=== PATIENT | female | born 1955 | race Caucasian/White ===

== ENCOUNTER → 2017-08-03 | Outpatient (CLI) | payer OTHER ==
--- NOTE | 2017-08-03 17:51 | WOMENS IMAGING REPORT ---
EXAM DESCRIPTION: BILAT SCREENING MAMMO W/CAD COMPLETED DATE/TIME: 08/03/2017 8:33 am REASON FOR STUDY: ROUTINE SCREENING; Z12.31 Z12.31 ENCNTR SCREEN MAMMOGRAM FOR MALIGNANT NEOPLASM O F MARIVEL COMPARISON: Multiple since 2010 TECHNIQUE: Standard craniocaudal and mediolateral oblique views of each breast recorded using [employer] l acquisition. LIMITATIONS: None. FINDINGS: Findings present which are benign by mammographic criteria. No suspicious masses, calcifi cations or architectural distortion. Pertinent benign findings: Stable benign breast nodules bilaterally. Read with the assistance of CAD. .[facility] - R2 Cenova Version 1.3 .[facility] Imaging - R2 Cenova Version 1.3 .[facility] - R2 Cenova Version 2.4 .[facility] - R2 Cenova Version 2.4 .[facility] - R2 Pre Sales Systems Engineer Version 9.2 Benign mammographic findings may include one or more of the following: Smooth masses, popcorn/rim/co arse calcifications, asymmetries, post-procedure changes, and lesions with long-standing stability. IMPRESSION: BENIGN MAMMOGRAPHIC FINDINGS. BIRADS 2 BREAST DENSITY: b. There are scattered areas of fibroglandular density. BIRAD: 2 BENIGN FINDING(S) RECOMMENDATION: ROUTINE SCREENING Please consider bilateral screening tomosynthesis in July 2018 COMMENT: The patient has been notified of the results by letter per MQSA requirements. Additional no tification policies are in place for contacting patient with suspicious or incomplete findings. Quality ID #[id number]: The [employer] recommends an annual screening mammogram for women aged 40 years or over. This facility utilizes a reminder system to ensure that all patients receive reminder letters, and/or direct phone calls for appointments. This includes reminders for routine scr eening mammograms, diagnostic mammograms, or other Breast Imaging Interventions when appropriate. Th is patient will be placed in the appropriate reminder system. The [employer] (ACR) has developed recommendations for screening MRI of the breast s in certain patient populations, to be used in conjunction with mammography. Breast MRI surveillanc e may be appropriate for women with more than 20% lifetime risk of developing breast cancer as deter mined by genetic testing, significant family history of the disease, or history of mantle radiation f or Hodgkins Disease. ACR Practice Guidelines 2008. TECHNICAL DOCUMENTATION: FINDING NUMBER: (1) ASSESSMENT: (1) JOB ID: [id number] [employer]- All Rights Reserved
== END ==
LOC: WI 08:13
PROVIDERS: ATTEND Physician Assistant
DX: Z12.31 Encounter for screening mammogram for malignant neoplasm of breast (principal)
CPT/HCPCS: 77067; G0202

== ENCOUNTER → 2018-08-08 | Outpatient (CLI) | payer OTHER ==
--- NOTE | 2018-08-08 10:35 | WOMENS IMAGING REPORT ---
EXAM DESCRIPTION: BILAT SCREENING MAMMO W/CAD COMPLETED DATE/TIME: 08/08/2018 8:34 am REASON FOR STUDY: BILATERAL SCREENING MAMMO /Z12.31 Z12.31 ENCNTR SCREEN MAMMOGRAM FOR MALIGNANT NE OPLASM OF MARIVEL COMPARISON: [id number] TECHNIQUE: Standard craniocaudal and mediolateral oblique views of each breast recorded using [employer] acquisition. LIMITATIONS: None. FINDINGS: No masses, calcifications or architectural distortion. No areas of suspicion. Read with the assistance of CAD. .[facility] - R2 Cenova Version 1.3 .[facility] Imaging - R2 Cenova Version 1.3 .[facility] - R2 Cenova Version 2.4 .[facility] - R2 Cenova Version 2.4 .[facility] - R2 Shipping And Receiving Specialist Version 9.2 IMPRESSION: NORMAL MAMMOGRAM. BIRADS 1. BREAST DENSITY: b. There are scattered areas of fibroglandular density. BIRAD: 1 NEGATIVE RECOMMENDATION: ROUTINE SCREENING COMMENT: The patient has been notified of the results by letter per SA requirements. Additional no tification policies are in place for contacting patient with suspicious or incomplete findings. Quality ID #[id number]: The [employer] recommends an annual screening mammogram for women aged 40 years or over. This facility utilizes a reminder system to ensure that all patients receive reminder letters, and/or direct phone calls for appointments. This includes reminders for routine scr eening mammograms, diagnostic mammograms, or other Breast Imaging Interventions when appropriate. Th is patient will be placed in the appropriate reminder system. The [employer] (ACR) has developed recommendations for screening MRI of the breast s in certain patient populations, to be used in conjunction with mammography. Breast MRI surveillanc e may be appropriate for women with more than 20% lifetime risk of developing breast cancer as deter mined by genetic testing, significant family history of the disease, or history of mantle radiation f or Hodgkins Disease. ACR Practice Guidelines 2008. TECHNICAL DOCUMENTATION: FINDING NUMBER: (1) ASSESSMENT: (1) JOB ID: [id number] [employer]- All Rights Reserved Reading location - IP/workstation name: [email or web address]
== END ==
LOC: WI 07:54
PROVIDERS: ATTEND Nurse Practitioner Family
DX: Z12.31 Encounter for screening mammogram for malignant neoplasm of breast (principal)
CPT/HCPCS: 77067

== ENCOUNTER → 2020-07-30 | Outpatient (CLI) | payer MEDICARE, OTHER ==
--- NOTE | 2020-07-30 17:02 | WOMENS IMAGING REPORT ---
EXAM DESCRIPTION: 3D SCREENING MAMMO BILAT IMAGES COMPLETED DATE/TIME: 07/30/2020 1:03 pm REASON FOR STUDY: Z12.31 ENCNTR SCREEN MAMMOGRAM FOR MALIGNANT NEOPLASM OF BREAST Z12.31 ENCNTR SCR EEN MAMMOGRAM FOR MALIGNANT NEOPLASM OF MARIVEL COMPARISON: 08/08/2018, 08/03/2017, 08/22/2016 EXAM PARAMETERS: Standard craniocaudal and mediolateral oblique views of each breast recorded using digital acquisition and breast tomosynthesis. Read with the assistance of CAD. .[facility] - R2 Physical Science Technician Version 9.2 LIMITATIONS: None. FINDINGS: RIGHT BREAST MASSES: No suspicious masses. CALCIFICATIONS: No new or suspicious calcifications. ARCHITECTURAL DISTORTION: None. ASYMMETRY: None noted. OTHER: No other significant findings. LEFT BREAST MASSES: No new or suspicious masses. CALCIFICATIONS: A small group of indeterminate calcifications are seen within the is upper inner quad rant at approximately the 9 o'clock position, anterior 1/3 of the breast parenchyma 4 to 5 cm from th e nipple ARCHITECTURAL DISTORTION: None. ASYMMETRY: None noted. OTHER: No other significant findings. IMPRESSION: Indeterminate calcifications within the left breast. 0 Incomplete: Needs Additional Imaging Evaluation and/or prior Mammograms for Comparison. BREAST DENSITY: b. There are scattered areas of fibroglandular density. BIRAD: ASSESSMENT: 0 Incomplete: Needs Additional Imaging Evaluation and/or prior Mammograms for C omparison. RECOMMENDATION: RECOMMENDED FOLLOW-UP: Recommend spot magnification of left breast findings. The patient will be contacted for additional imaging. COMMENT: The patient has been notified of the results by letter per SA requirements. Additional no tification policies are in place for contacting patient with suspicious or incomplete findings. Quality ID #[id number]: The [employer] recommends an annual screening mammogram for women aged 40 years or over. This facility utilizes a reminder system to ensure that all patients receive reminder letters, and/or direct phone calls for appointments. This includes reminders for routine scr eening mammograms, diagnostic mammograms, or other Breast Imaging Interventions when appropriate. Th is patient will be placed in the appropriate reminder system. TECHNICAL DOCUMENTATION: FINDING NUMBER: (1) ASSESSMENT: (1) JOB ID: [id number] 2010 [email or web address]- All Rights Reserved Reading location - IP/workstation name: [email or web address]
== END ==
LOC: WI 12:40
PROVIDERS: ATTEND Nurse Practitioner Family
DX: Z12.31 Encounter for screening mammogram for malignant neoplasm of breast (principal); R92.0 Mammographic microcalcification found on diagnostic imaging of breast
CPT/HCPCS: 77063; 77067

== ENCOUNTER → 2020-08-06 | Outpatient (CLI) | payer OTHER, MEDICARE ==
--- NOTE | 2020-08-06 09:09 | WOMENS IMAGING REPORT ---
EXAM DESCRIPTION: LEFT DIAGNOSTIC MAMMO W/CAD IMAGES COMPLETED DATE/TIME: 08/06/2020 8:22 am REASON FOR STUDY: MICROCALCIFICATIONS LEFT BREAST;R92.0 R92.0 MAMMOGRAPHIC MICROCALCIFICATION FOUND ON DX IMAGING OF COMPARISON: 07/30/2020 EXAM PARAMETERS: True lateral and magnification views. LIMITATIONS: None. FINDINGS: BREAST LATERALITY: left MASSES: No suspicious masses. CALCIFICATIONS: Calcifications upper inner quadrant about 5 cm deep to the nipple have some pleomorph ic features and no definite benign features. ARCHITECTURAL DISTORTION: None. ASYMMETRY: None noted. OTHER: No other significant findings. IMPRESSION: Indeterminate calcifications. BREAST DENSITY: b. There are scattered areas of fibroglandular density. BIRAD: ASSESSMENT: 4 Suspicious. Biopsy should be performed in the absence of clinical contra-indic ation. RECOMMENDATION: RECOMMENDED FOLLOW UP: Birads 4: Biopsy should be performed in the absence of clinic al contraindication. SPECIFIC INTERVENTION/IMAGING/CONSULTATION RECOMMENDED:The suspicious finding(s) amenable to stereo-t actic-guided vacuum assisted core biopsy. COMMUNICATION:The imaging findings were not discussed with the patient. Her referring provider has be en notified of the findings. COMMENT: The patient has been notified of the results by letter per SA requirements. Additional no tification policies are in place for contacting patient with suspicious or incomplete findings. Quality ID #[id number]: The [employer] recommends an annual screening mammogram for women aged 40 years or over. This facility utilizes a reminder system to ensure that all patients receive reminder letters, and/or direct phone calls for appointments. This includes reminders for routine scr eening mammograms, diagnostic mammograms, or other Breast Imaging Interventions when appropriate. Th is patient will be placed in the appropriate reminder system. TECHNICAL DOCUMENTATION: FINDING NUMBER: (1) ASSESSMENT: (1) JOB ID: [id number] 2010 [employer]- All Rights Reserved Reading location - IP/workstation name: [email or web address]
--- OUTSIDE RECORDS SUMMARY | 2020-08-07 15:03 | XMS REPORT ---
:1955 [facility] [place] [address] [place] [address] Care Team Providers Name Role Phone Pierce Attending Clinician Unavailable Dannie Attending Clinician Unavailable Dannie Attending Clinician Unavailable Louie Attending Clinician Unavailable Allergies, Adverse Reactions, Alerts This patient has no known allergies or adverse reactions. Medications Ordered Filled Start Stop Current Ordering Indication Dosage Frequency Signature Comments Components Medication Medication Date Date Medication? Clinician (SIG) Name Name celecoxib No celecoxib 100 mg 100 mg capsule capsule Take 1 Take 1 capsule capsule every day every day by oral by oral route for route for 90 days. 90 days. hydrochloro No hydrochlor thiazide 1 othiazide twice daily 1 twice daily metformin No 1 BID metformin 1,000 mg 1,000 mg tablet Take tablet 1 tablet Take 1 twice a day tablet by oral twice a route for day by 90 days. oral route for 90 days. metoprolol No 1 BID metoprolol tartrate 50 tartrate mg tablet 50 mg Take 1 tablet tablet Take 1 twice a day tablet by oral twice a route for day by 90 days. oral route for 90 days. pravastatin No pravastati 40 mg n 40 mg tablet Take tablet 1 tablet Take 1 every day tablet by oral every day route for by oral 90 days. route for 90 days. tramadol 50 No 1 Q1D tramadol mg tablet 50 mg Take 1 tablet tablet Take 1 every day tablet by oral every day route for by oral 30 days. route for 30 days. Euflexxa 10 No 2.5mL Q1W Euflexxa mg/mL (mw 10 mg/mL 2.4-3.6 (mw million) 2.4-3.6 intra-artic million) ular intra-gavin syringe cular Inject 2.5 syringe mL every Inject 2.5 week by mL every intra-artic week by ular route. intra-gavin cular route. Gel-One 30 No Gel-One 30 mg/3 mL mg/3 mL intra-artic intra-gavin ular cular syringe one syringe single dose one single given in dose given Right knee in Right knee hydrochloro No hydrochlor thiazide othiazide 12.5 mg 12.5 mg tablet tablet fenofibrate No fenofibrat micronized e 130 mg micronized capsule 130 mg capsule Problems Condition Condition Condition Status Onset Resolution Last Treatin g Comments Name Details Category Date Date Treatment Clinician Date Pain in Pain in Problem Active 2018-09 right knee Right Knee 00:00: 00 Diabetes Diabetes Problem Active mellitus Mellitus 05-17 00:00: 00 Hyperlipide Hyperlipide Problem Active bubba bubba 05-17 00:00: 00 Hypertensiv Hypertensiv Problem Active e disorder e Disorder 05-17 00:00: 00 Arthritis Arthritis Problem Active 05-17 00:00: 00 Procedures Procedure Date / Time Performed Performing Clinician Devic e OFFICE/OUTPATIENT VISIT EST 2020-07-06 09:00:00 OFFICE/OUTPATIENT VISIT EST 2020-04-01 08:00:00 OFFICE/OUTPATIENT VISIT EST 2019-10-02 09:15:00 SYNVISC 1MG 2019-07-11 00:00:00 OFFICE/OUTPATIENT VISIT EST 2019-07-01 08:00:00 OFFICE/OUTPATIENT VISIT EST 2019-04-08 08:00:00 OFFICE/OUTPATIENT VISIT EST 2019-01-04 09:00:00 HEMOGLOBIN A1C LEVEL < 7.0% 2018-07-06 08:30:00 OFFICE/OUTPATIENT VISIT EST 2018-07-06 08:30:00 OFFICE/OUTPATIENT VISIT EST 2018-01-31 08:00:00 OFFICE/OUTPATIENT VISIT EST 2017-11-02 08:00:00 OFFICE/OUTPATIENT VISIT EST 2017-08-04 08:15:00 OFFICE/OUTPATIENT VISIT EST 2017-04-28 08:30:00 OFFICE/OUTPATIENT VISIT EST 2017-03-01 09:45:00 HEMOGLOBIN A1C LEVEL < 7.0% 2017-01-27 09:00:00 PREV VISIT EST AGE 40-64 2017-01-27 09:00:00 Results Test Description Test Time Test Comments Text Results Atomic Results Result Comments Hemoglobin A1C\S\ 2020-07-06 09:00:00 Test Item Value Reference Range Comments HgbA1C, Fingerstick (test code = 4548-4) 5.9 % 4-5.6 Hemoglobin A1C\S\2020-04-01 08:00:00 Test Item Value Reference Range Comments HgbA1C, Fingerstick (test code = 4548-4) 7.3 % 4-5.6 Hemoglobin A1C\S\2019-10-02 09:15:00 Test Item Value Reference Range Comments HgbA1C, Fingerstick (test code = 4548-4) 6.2 % 4-5.6 HEPATIC FUNCTION [id number] 08:46:00 Test Item Value Reference Range Comments BILIRUBIN, INDIRECT (test code = 64486089) 0.2 mg/dL (calc) 0.2- 1.2 BILIRUBIN, TOTAL (test code = 32996889) 0.3 mg/dL 0.2-1.2 ALBUMIN (test code = 60774013) 4.1 g/dL 3.6-5.1 AST (test code = 39832986) 22 U/L 10-35 ALKALINE PHOSPHATASE (test code = 94272978) 50 U/L 33-1 30 ALT (test code = 97754286) 28 U/L 6-29 ALBUMIN/GLOBULIN RATIO (test code = 1.6 (calc) 1.0-2.5 02046930) GLOBULIN (test code = 14588415) 2.6 g/dL (calc) 1.9-3.7 PROTEIN, TOTAL (test code = 90214646) 6.7 g/dL 6.1-8.1 BILIRUBIN, DIRECT (test code = 84001767) 0.1 mg/dL < OR = 0.2 LIPID PANEL, [id number] 08:46:00 Test Item Value Reference Range Comments CHOL/HDLC RATIO (test code = 63213209) 3.1 (calc) <5.0 HDL CHOLESTEROL (test code = 97666915) 71 mg/dL >50 TRIGLYCERIDES (test code = 83815062) 244 mg/dL <150 CHOLESTEROL, TOTAL (test code = 02284802) 218 mg/dL <200 NON HDL CHOLESTEROL (test code = 68571221) 147 mg/dL (calc) <130 LDL-CHOLESTEROL (test code = 97127671) 110 mg/dL (calc) COMPREHENSIVE METABOLIC [id number] 08:46:00 Test Item Value Reference Range Comments UREA NITROGEN (BUN) (test code = 21 mg/dL 7-25 24159120) SODIUM (test code = 29911255) 142 mmol/L 135-146 GLOBULIN (test code = 01261725) 2.6 g/dL (calc) 1.9-3.7 ALBUMIN (test code = 72365771) 4.1 g/dL 3.6-5.1 eGFR NON-AFR. BELARUSIAN (test code = 98 mL/min/1.73m2 > OR = 60 15327975) CALCIUM (test code = 13656260) 9.4 mg/dL 8.6-10.4 eGFR (test code = 114 mL/min/1.73m2 > OR = 60 99174436) GLUCOSE (test code = 01106247) 139 mg/dL 65-99 AST (test code = 39902695) 22 U/L 10-35 CHLORIDE (test code = 06979072) 108 mmol/L 98-110 ALBUMIN/GLOBULIN RATIO (test code = 1.6 (calc) 1.0-2.5 39118196) ALT (test code = 75915924) 28 U/L 6-29 CARBON DIOXIDE (test code = 82397756) 23 mmol/L 20-32 BILIRUBIN, TOTAL (test code = 0.3 mg/dL 0.2-1.2 13578163) CREATININE (test code = 21772632) 0.57 mg/dL 0.50-0.99 PROTEIN, TOTAL (test code = 23571394) 6.7 g/dL 6.1-8.1 ALKALINE PHOSPHATASE (test code = 50 U/L 33-130 42133454) BUN/CREATININE RATIO (test code = NOT APPLICABLE (calc) 6-22 28003918) POTASSIUM (test code = 98067987) 4.3 mmol/L 3.5-5.3 HEMOGLOBIN A1c WITH [id number] 08:46:00 Test Item Value Reference Range Comments eAG (mmol/L) (test code = 83838924) 8.5 (calc) eAG (mg/dL) (test code = 61303544) 154 (calc) HEMOGLOBIN A1c (test code = 22576886) 7.0 % of total Hgb <5.7 Hemoglobin A1C\S\2019-04-08 08:00:00 Test Item Value Reference Range Comments HgbA1C, Fingerstick (test code = 4548-4) 6.6 % 4-5.6 Hemoglobin A1C\S\2019-01-04 09:00:00 Test Item Value Reference Range Comments HgbA1C, Fingerstick (test code = 4548-4) 6.9 % 4-5.6 LIPID PANEL, [id number] 09:04:00 Test Item Value Reference Range Comments LDL-CHOLESTEROL (test code = 12894168) 69 mg/dL (calc) TRIGLYCERIDES (test code = 30520175) 124 mg/dL <150 CHOLESTEROL, TOTAL (test code = 20761953) 182 mg/dL <200 CHOL/HDLC RATIO (test code = 32521624) 2.0 (calc) <5.0 HDL CHOLESTEROL (test code = 40174217) 92 mg/dL >50 NON HDL CHOLESTEROL (test code = 15183302) 90 mg/dL (calc) <130 HEPATIC FUNCTION [id number] 09:04:00 Test Item Value Reference Range Comments ALT (test code = 68422025) 21 U/L 6-29 BILIRUBIN, INDIRECT (test code = 63032662) 0.3 mg/dL (calc) 0.2- 1.2 ALKALINE PHOSPHATASE (test code = 04006391) 56 U/L 33-1 30 BILIRUBIN, DIRECT (test code = 89568576) 0.1 mg/dL < OR = 0.2 BILIRUBIN, TOTAL (test code = 09698647) 0.4 mg/dL 0.2-1.2 GLOBULIN (test code = 24555696) 2.5 g/dL (calc) 1.9-3.7 ALBUMIN/GLOBULIN RATIO (test code = 1.6 (calc) 1.0-2.5 50092403) PROTEIN, TOTAL (test code = 68252474) 6.5 g/dL 6.1-8.1 AST (test code = 00994345) 17 U/L 10-35 ALBUMIN (test code = 18635297) 4.0 g/dL 3.6-5.1 COMPREHENSIVE METABOLIC [id number] 09:04:00 Test Item Value Reference Range Comments SODIUM (test code = 80940008) 140 mmol/L 135-146 GLOBULIN (test code = 67431222) 2.5 g/dL (calc) 1.9-3.7 POTASSIUM (test code = 02799577) 4.3 mmol/L 3.5-5.3 AST (test code = 46099292) 17 U/L 10-35 ALBUMIN/GLOBULIN RATIO (test code = 1.6 (calc) 1.0-2.5 14421042) BUN/CREATININE RATIO (test code = NOT APPLICABLE (calc) 6-22 80577920) CALCIUM (test code = 41599967) 9.3 mg/dL 8.6-10.4 ALT (test code = 97256216) 21 U/L 6-29 BILIRUBIN, TOTAL (test code = 0.4 mg/dL 0.2-1.2 95780470) PROTEIN, TOTAL (test code = 12531600) 6.5 g/dL 6.1-8.1 CARBON DIOXIDE (test code = 67251836) 25 mmol/L 20-32 eGFR (test code = 116 mL/min/1.73m2 > OR = 60 56162492) ALBUMIN (test code = 21622364) 4.0 g/dL 3.6-5.1 eGFR NON-AFR. BELARUSIAN (test code = 100 mL/min/1.73m2 > OR = 60 04645291) UREA NITROGEN (BUN) (test code = 17 mg/dL 7-25 77419174) ALKALINE PHOSPHATASE (test code = 56 U/L 33-130 05155470) CREATININE (test code = 31869844) 0.54 mg/dL 0.50-0.99 CHLORIDE (test code = 09693595) 107 mmol/L 98-110 GLUCOSE (test code = 15948638) 101 mg/dL 65-99 CBC (INCLUDES DIFF/PLT)2018-07-06 09:04:00 Test Item Value Reference Range Comments RED BLOOD CELL COUNT (test code = 49963329) 4.66 Million/uL 3.80 -5.10 ABSOLUTE MONOCYTES (test code = 77132877) 679 cells/uL 200-95 0 EOSINOPHILS (test code = 33507189) 4.6 % ABSOLUTE NEUTROPHILS (test code = 50316566) 3979 cells/uL 1500 -7800 HEMOGLOBIN (test code = 62288686) 13.8 g/dL 11.7-15.5 ABSOLUTE EOSINOPHILS (test code = 97264690) 336 cells/uL 15-5 00 ABSOLUTE LYMPHOCYTES (test code = 35642488) 2270 cells/uL 850- 3900 HEMATOCRIT (test code = 88492485) 41.3 % 35.0-45.0 PLATELET COUNT (test code = 86502675) 328 Thousand/uL 140-400 MPV (test code = 33385732) 11.3 fL 7.5-12.5 MONOCYTES (test code = 36277954) 9.3 % MCHC (test code = 91004963) 33.4 g/dL 32.0-36.0 MCH (test code = 03789720) 29.6 pg 27.0-33.0 NEUTROPHILS (test code = 52393697) 54.5 % BASOPHILS (test code = 81267591) 0.5 % MCV (test code = 04482679) 88.6 fL 80.0-100.0 RDW (test code = 05790314) 13.1 % 11.0-15.0 LYMPHOCYTES (test code = 88678225) 31.1 % WHITE BLOOD CELL COUNT (test code = 7.3 Thousand/uL 3.8-10.8 34756184) ABSOLUTE BASOPHILS (test code = 22815866) 37 cells/uL 0-200 Hemoglobin A1C\S\2018-07-06 08:30:00 Test Item Value Reference Range Comments HgbA1C, Fingerstick (test code = 4548-4) 6.1 % 4-5.6 Hemoglobin A1C\S\2018-01-31 08:00:00 Test Item Value Reference Range Comments HgbA1C, Fingerstick (test code = 4548-4) 6.0 % 4-5.6 Hemoglobin A1C\S\2017-11-02 08:00:00 Test Item Value Reference Range Comments HgbA1C, Fingerstick (test code = 4548-4) 6.1 % 4-5.6 CMP with Estimated [id number] 08:24:00 Test Item Value Reference Range Comments ALT/SGPT (test code = 869300) 18 U/L 6-29 Total Protein (test code = 703909) 6.3 g/dL 6.1-8.1 BUN (test code = 452460) 18 mg/dL 7-25 Potassium (test code = 232058) 4.2 mmol/L 3.5-5.3 Est GFR, (test code = 920409) >89 mL/min > =60 Bilirubin, Total (test code = 688266) 0.3 mg/dL 0.2-1.2 CO2 (test code = 882461) 22 mmol/L 20-31 Calcium (test code = 434725) 9.0 mg/dL 8.6-10.4 Creatinine (test code = 403545) 0.50 mg/dL 0.50-0.99 Glucose (test code = 132587) 114 mg/dL 65-99 Alkaline Phosphatase (test code = 288423) 55 U/L 33-130 Est GFR, NonAfrican Macedonian (test code = 829337) >89 mL/min >=60 Sodium (test code = 298639) 143 mmol/L 135-146 Chloride (test code = 993951) 108 mmol/L 98-110 AST/SGOT (test code = 300999) 18 U/L 10-35 Est GFR, (test code = 87360121) >89 mL/min >=60 Est GFR, NonAfrican Macedonian (test code = >89 mL/min >=60 22434143) Albumin (test code = 966218) 3.8 g/dL 3.6-5.1 CBC NO Diff (Complete Blood Count)2017-08-04 08:24:00 Test Item Value Reference Range Comments Hematocrit (test code = 211706) 41.7 % 35.0-45.0 RDW (test code = 541849) 13.4 % 11.0-15.0 MPV (test code = 082229) 11.1 fL 7.5-12.5 Hemoglobin (test code = 084255) 13.8 g/dL 11.7-15.5 RBC (test code = 925498) 4.65 MIL/uL 3.80-5.10 MCV (test code = 810358) 89.7 fL 80.0-100.0 WBC (test code = 488186) 7.7 K/uL 3.8-10.8 MCH (test code = 493638) 29.7 pg 27.0-33.0 Platelet Count (test code = 629487) 319 K/uL 140-400 MCHC (test code = 295258) 33.1 g/dL 32.0-36.0 Lipid [id number] 08:24:00 Test Item Value Reference Range Comments HDL Cholesterol (test code = 060803) 71 mg/dL >50 VLDL Cholesterol (Calc) (test code = 792144) 27 mg/dL <30 Cholesterol (test code = 641850) 179 mg/dL <200 LDL Cholesterol (Calc) (test code = 077914) 81 mg/dL <100 Triglycerides (test code = 739650) 136 mg/dL <150 Total Chol/HDL Ratio (test code = 184434) 2.5 Ratio <5.0 Hemoglobin A1C\S\2017-08-04 08:15:00 Test Item Value Reference Range Comments HgbA1C, Fingerstick (test code = 4548-4) 6.0 % 4-5.6 Hemoglobin A1C\S\2017-04-28 08:30:00 Test Item Value Reference Range Comments HgbA1C, Fingerstick (test code = 4548-4) 5.8 % 4-5.6 UDS - POC Test\S\2017-03-01 09:45:00 Test Item Value Reference Range Comments UDS - POC Test (test code = UDSPOC) Negative CMP with Estimated [id number] 08:10:00 Test Item Value Reference Range Comments Est GFR, (test code = 245302) >89 mL/min > =60 Alkaline Phosphatase (test code = 556987) 49 U/L 33-130 ALT/SGPT (test code = 485384) 30 U/L 6-29 AST/SGOT (test code = 282334) 27 U/L 10-35 CO2 (test code = 607037) 23 mmol/L 20-31 Potassium (test code = 904903) 4.5 mmol/L 3.5-5.3 Albumin (test code = 955336) 4.0 g/dL 3.6-5.1 Bilirubin, Total (test code = 592793) 0.3 mg/dL 0.2-1.2 Total Protein (test code = 410170) 6.2 g/dL 6.1-8.1 BUN (test code = 235971) 15 mg/dL 7-25 Calcium (test code = 153520) 8.8 mg/dL 8.6-10.4 Creatinine (test code = 090540) 0.57 mg/dL 0.50-0.99 Sodium (test code = 390312) 141 mmol/L 135-146 Glucose (test code = 700168) 119 mg/dL 65-99 Est GFR, NonAfrican Macedonian (test code = 984018) >89 mL/min >=60 Chloride (test code = 217675) 109 mmol/L 98-110 [id number] 08:10:00 Test Item Value Reference Range Comments TSH (test code = 848662) 3.04 mIU/L Lipid [id number] 08:10:00 Test Item Value Reference Range Comments LDL Cholesterol (Calc) (test code = 490447) 74 mg/dL <130 VLDL Cholesterol (Calc) (test code = 793022) 27 mg/dL <30 Cholesterol (test code = 295852) 168 mg/dL 125-200 Triglyceride (test code = 277046) 134 mg/dL <150 Total Chol/HDL Ratio (test code = 213110) 2.5 Ratio <=5.0 HDL Cholesterol (test code = 466142) 67 mg/dL >=46 CBC NO Diff (Complete Blood Count)2017-01-31 08:10:00 Test Item Value Reference Range Comments RBC (test code = 367462) 4.85 MIL/uL 3.80-5.10 WBC (test code = 768725) 7.2 K/uL 3.8-10.8 Platelet Count (test code = 457278) 310 K/uL 140-400 Hemoglobin (test code = 331516) 14.3 g/dL 11.7-15.5 MCH (test code = 526683) 29.5 pg 27.0-33.0 RDW (test code = 120082) 13.6 % 11.0-15.0 Hematocrit (test code = 488150) 42.9 % 35.0-45.0 MPV (test code = 067918) 11.5 fL 7.5-12.5 MCV (test code = 307679) 88.5 fL 80.0-100.0 MCHC (test code = 111882) 33.3 g/dL 32.0-36.0 Pap, TP Imaging w/ [id number] 09:12:00 Test Item Value Reference Range Comments HPV, High Risk (test code = 286215) Not Detected Previous Diagnosis: (test code = PAP 802861) Number of Slides/Vials: (test code = 1 Vial Submitted 906767) LMP: (test code = 818092) 20000925 Clinical Information: (test code = Z12.4 324714) Source: (test code = 630241) Cervical/endocervical Source (test code = 731742) Cervical/endocervical Hemoglobin A1C\S\2017-01-27 09:00:00 Test Item Value Reference Range Comments HgbA1C, Fingerstick (test code = 4548-4) 6.3 % 4-5.6 Hemoglobin A1C\S\2016-10-28 09:45:00 Test Item Value Reference Range Comments HgbA1C, Fingerstick (test code = 4548-4) 6.4 % 4-5.6 Assessments Condition Name Status Diagnosis Date Treating Clinici an Type 2 diabetes mellitus without Active complications Essential (primary) hypertension Active Mixed hyperlipidemia Active Encntr screen mammogram for malignant Active neoplasm of breast Type 2 diabetes mellitus without Active complications Essential (primary) hypertension Active Mixed hyperlipidemia Active Morbid (severe) obesity due to excess Active calories Essential (primary) hypertension Active Type 2 diabetes mellitus without Active complications Unilateral primary osteoarthritis, Active right knee Morbid (severe) obesity due to excess Active calories Pain in right knee Active 2019-09-19 10:29:26 Osteoarthritis of knee Active 2019-09-19 10:40:55 Osteoarthritis of knee Active 2019-08-27 12:46:30 Pain in right knee Active 2019-08-20 14:20:34 Pain in right knee Active 2019-07-11 11:16:18 Osteoarthritis of knee Active 2019-07-11 11:30:30 Arthritis of right knee Active 2019-07-30 07:37:45 Type 2 diabetes mellitus without Active complications Unilateral primary osteoarthritis, Active right knee Essential (primary) hypertension Active Mixed hyperlipidemia Active Type 2 diabetes mellitus without Active complications Essential (primary) hypertension Active Mixed hyperlipidemia Active Unilateral primary osteoarthritis, Active right knee Type 2 diabetes mellitus without Active complications Essential (primary) hypertension Active Mixed hyperlipidemia Active Body mass index (BMI) 50-59.9 , adult Active Essential (primary) hypertension Active Mixed hyperlipidemia Active Prediabetes Active Pain in right knee Active Prediabetes Active Unilateral primary osteoarthritis, Active right knee Essential (primary) hypertension Active Body mass index (BMI) 50-59.9 , adult Active Prediabetes Active Unilateral primary osteoarthritis, Active right knee Morbid (severe) obesity due to excess Active calories Essential (primary) hypertension Active Morbid (severe) obesity due to excess Active calories Body mass index (BMI) 50-59.9 , adult Active Prediabetes Active Hyperlipidemia, unspecified Active Prediabetes Active Unilateral primary osteoarthritis, Active right knee Morbid (severe) obesity due to excess Active calories Body mass index (BMI) 50-59.9 , adult Active Unilateral primary osteoarthritis, Active right knee Pain in left lower leg Active Prediabetes Active Morbid (severe) obesity due to excess Active calories Encntr for general adult medical exam Active w/o abnormal findings Encounter for screening for malignant Active neoplasm of cervix Morbid (severe) obesity due to excess Active calories Essential (primary) hypertension Active Encounters Start End Encounter Admission Attending Care Care Encounter Date/Time Date/Time Type Type Clinicians Facility Department ID 2020-07-06 2020-07-06 Outpatient Pierce [facility] 9 [id number] 09:00:00 09:00:00 Lesly Bentley [id number] s [id number] and [id number] [facility], 2020-04-01 2020-04-01 Outpatient Pierce [facility] 1 [id number] 08:00:00 08:00:00 Leslyflorencia Bentley [id number] s [id number] and [id number] [facility], 2019-10-02 2019-10-02 Outpatient Pierce [facility] B [id number] 09:15:00 09:15:00 Leslyflorencia Bentley [id number] s [id number] and [id number] [facility], 2019-09-19 2019-09-19 Thierno Membreno [id number] 00:00:00 00:00:00 [facility] [id number] [facility] [address] [place] [address], [address] [address], Ph. 2019-08-20 2019-08-20 Thierno Membreno [id number] 00:00:00 00:00:00 [facility] [id number] MD [facility] [address] [place] [address], [address], [place] [address], Ph. 2019-07-11 2019-07-11 Thierno Membreno [id number] 00:00:00 00:00:00 [facility] [id number] MD [facility] [address], [address], [place] [address], Ph. 2019-07-01 2019-07-01 Outpatient Dannie [facility] 0 [id number] 08:00:00 08:00:00 [facility] [id number] and [id number] Multispecial [id number] ty Clini 2019-04-08 2019-04-08 Outpatient Dannie [facility] 1 [id number] 08:00:00 08:00:00 [facility] [id number] s [id number] and [id number] [facility], 2019-01-04 2019-01-04 Outpatient Dannie [facility] B [id number] 09:00:00 09:00:00 [facility] [id number] s [id number] and [id number] [facility], 2018-07-06 2018-07-06 Outpatient Dannie [facility] 8 [id number] 08:30:00 08:30:00 [facility] [id number] s [id number] and [id number] [facility], [place] 2018-01-31 2018-01-31 Outpatient Dannie [facility] A [id number] 08:00:00 08:00:00 [facility] [id number] s [id number] and [id number] [facility], SERAFIN 2017-11-02 2017-11-02 Outpatient Louie [facility] E3 [id number] 08:00:00 08:00:00 [facility] [id number] s [id number] and [id number] [facility] 2017-08-04 2017-08-04 Outpatient Louie [facility] A0 [id number] 08:15:00 08:15:00 [facility] [id number] s [id number] and [id number] [facility], SERAFIN 2017-04-28 2017-04-28 Outpatient Louie [facility] 79 [id number] 08:30:00 08:30:00 [facility] [id number] s [id number] [id number] 2017-03-01 2017-03-01 Outpatient Louie [facility] 87 [id number] 09:45:00 09:45:00 [facility] [id number] s [id number] and [id number] [facility] 2017-01-27 2017-01-27 Outpatient Louie [facility] 42 [id number] 09:00:00 09:00:00 [facility] [id number] s [id number] and [id number] [facility] [place] Immunizations Ordered Immunization Filled Immunization Date Status Commen ts Refusal Reason Name Name influenza, 2019-06-25 Completed injectable, 00:00:00 quadrivalent influenza, 2017-06-25 Completed injectable, 00:00:00 quadrivalent Social History Smoking Status Start Date Stop Date Former Smoker Vital Signs Vital Name Observation Time Observation Value Comments Height 2019-09-19 00:00:00 62 [in_i] BMI (Body Mass Index) 2019-09-19 00:00:00 56.7 kg/m2 Body Weight 2019-09-19 00:00:00 310 [lb_av] BP Diastolic 2019-08-20 00:00:00 78 mm[Hg] Height 2019-08-20 00:00:00 62 [in_i] BMI (Body Mass Index) 2019-08-20 00:00:00 56.7 kg/m2 BP Systolic 2019-08-20 00:00:00 137 mm[Hg] Body Weight 2019-08-20 00:00:00 310 [lb_av] Height 2019-07-11 00:00:00 62 [in_i] BMI (Body Mass Index) 2019-07-11 00:00:00 56.7 kg/m2 Body Weight 2019-07-11 00:00:00 310 [lb_av] Hospital Discharge Instructions 1. Pain in right knee 2. Osteoarthritis of knee knee arthritis: care instructions Discussion Note: None recorded.1. Pain in right knee synvisc injection (PROC) 2. Osteoarthritis of knee 3. Arthritis of right knee Discussion Note: None recorded. Patient educational handouts: No information available.
== END ==
LOC: WI 08:19
PROVIDERS: ATTEND Nurse Practitioner Family
DX: R92.0 Mammographic microcalcification found on diagnostic imaging of breast (principal)
CPT/HCPCS: 77065

== ENCOUNTER → 2020-09-08 | Day surgery (SDC) | payer MEDICARE, OTHER ==
[~2020-09-08] MED LIST: LIDOCAINE 1%/EPINEPHRINE INJ 20 ML VIAL ONE; LIDOCAINE 2% INJ (20 MG/ML) 20 ML MDV ONE
--- NOTE | 2020-09-10 08:46 | WOMENS IMAGING REPORT ---
EXAM DESCRIPTION: STEREO BREAST BX; LEFT DIAGNOSTIC MAMMO W/CAD IMAGES COMPLETED DATE/TIME: 09/08/2020 9:41 am; 09/08/2020 9:27 am REASON FOR STUDY: R92.8 OTH ABN AND INCONCLUSIVE FINDINGS ON DX IMAGING OF BREAST; LT POST STEREO BI OPSY R92.8 OTH ABN AND INCONCLUSIVE FINDINGS ON DX IMAGING OF MARIVEL R92.2 INCONCLUSIVE MAMMOGRAM COMPARISON: None. TECHNIQUE: Vacuum-assisted stereotactic-guided biopsy of the lesion in the left breast. Serial progr ess stereotactic and single digital images acquired. PROCEDURE: The procedure was discussed with the patient, including possible complications such as bleeding, infection, nondiagnostic sample or possible findings such as atypical ductal hyperplasia wh ich would require additional surgery. Possible clip placement was explained. The patient agreed t o the procedure. The patient was placed prone on the stereotactic table. The lesion in the breast was localized ster eotactically. The skin of the breast was prepped in sterile fashion. Superficial and deep local an esthesia was provided. A small incision was made in the skin and the biopsy probe was advanced to t he target. Using the vacuum-assisted core biopsy device, multiple core specimens were obtained. Continuous low dose infusion of local anesthesia was used during the procedure. A specimen radiograph was obtained. The radiograph demonstrated microcalcification in the biopsy tis tabitha. Using [id number]-[id number] technique a Barrel clip was deployed at the biopsy site. Mammographic image confirmed presence of the clip. The probe was then removed and hemostasis obtained with manua l compression. A compression bandage was applied. Postoperative instructions were explained to th e patient. POST-PROCEDURE TWO VIEW DIGITAL MAMMOGRAM: An additional two view mammogram was recorded in the [facility] mammographic suite. Marker clip is present at the biopsy site. LIMITATIONS: None. FINDINGS: PATHOLOGY: Ductal carcinoma in situ. CONCORDANT: Yes. POST PROCEDURE MAMMOGRAMS FOR MARKER PLACEMENT: Yes IMPRESSION: SUCCESSFUL STEREOTACTIC-GUIDED BIOPSY OF THE LESION IN THE LEFT BREAST. BIOPSY RESULTS ARE CONCORDANT WITH IMAGING FINDINGS. FOLLOW-UP: PER REFERRING SURGEON. NOTIFICATION: THE PATIENT'S PHP HAS BEEN NOTIFIED OF THE RESULTS. HE/SHE WILL DISCUSS THE RESULTS WIT H THE PATIENT AND SCHEDULE ADDITIONAL INTERVENTION NEEDED. COMMENT: Patient medication list reviewed: Yes- Quality ID# [id number]:Eligible professional attests to doc umenting in the medical record they obtained, updated, or reviewed the patient's current medications. TECHNICAL DOCUMENTATION: JOB ID: [id number] 2010 [employer]- All Rights Reserved Reading location - IP/workstation name: [email or web address]
== END ==
LOC: RAD 08:30
PROVIDERS: ATTEND Surgery
DX: D05.12 Intraductal carcinoma in situ of left breast (principal); R92.0 Mammographic microcalcification found on diagnostic imaging of breast
CPT/HCPCS: 88305 ×2; 88342; 19081; 77065; J3490 ×2